=== PATIENT | male | born 1950 | race Caucasian/White ===

== ENCOUNTER 2017-01-19 11:34 | Outpatient (CLI) | payer OTHER ==
[~2017-01-19] VITALS: Ht 167.6 cm; Wt 52.0 kg
[2017-01-19 11:43] VITALS: BP 92/53; PULSE 68; RESP 18; Ht 167.6 cm; Wt 52.0 kg
[2017-01-19] MEDS ORDERED: METO-448 PO (12:07)
[2017-01-19] MEDS ORDERED: ASPI-664 PO (12:07)
[2017-01-19] MEDS ORDERED: CLON1PAT2 TD (12:07)
[2017-01-19] MEDS ORDERED: BENA10TA48 PO (12:07)
[2017-01-19] MEDS ORDERED: B CO1CAP11 PO (12:07)
[2017-01-19] MEDS ORDERED: SEVE800T10 PO (12:07)
[2017-01-19] MEDS ORDERED: AMLO-147 PO (12:07)
[2017-01-19] MEDS ORDERED: OMEP40CA6 PO (12:07)
[2017-01-19] MEDS ORDERED: HYDR-906 PO (12:07)
--- NOTE | 2017-01-19 15:56 | PN ---
Date/Time of Note Date/Time of Note DATE: 01/19/17 TIME: 15:46 Outpatient Progress Note Chief Complaint GI bleed/ASHD/diabetes/CRF/hypertension/hyperlipidemia HPI GI bleed/patient was recently hospitalized with a GI bleeding, patient on medication, no nausea vomiting, abdominal pain, no heartburn, ASHD/no chest pain, no PND orthopnea or ankle edema, Diabetes/no pleuritic supple due to hypoglycemia or gastroparesis, CRF/no hematemesis or melena, no pruritus, patient on dialysis, Hyperlipidemia/no xanthoma, on medication, no side effect of medication, Review of Systems Const: No Fever, no chills, no Wt. loss, no Fatigue, normal appetite, no diaphoresis. Eyes: No pain, no discharge patient has impaired vision, left side eye minimal vision,, even with the glasses,, no redness, no foreign body. ENT: No pain, no bleeding, no congestion, no sore throat, no dysphagia, no discharge or rhinitis. Lymph: No adenopathy, no tender nodes, no lymphedema. Resp: No SOB, no cough, no sputum, no wheezing, no chest pain., Hemoptysis, CV: No chest pain, no palpitaions, no SULLIVAN, no PND, no edema. GI: Normal appetite, no pain, no nausea, no vomiting, no diarrhea, no blood, no constipation. : No frequency, no urgency, no dysuria, no hematuria, no flank pain, no discharge, no bleeding. Musc: No back pain, no neck pain, no knee pain, no restricted ROM. Left leg below knee amputation, Skin: No rash, no skin lesions, no erythema, no laceration, no bruising, no pruritus. Patient has ulcer on the right heel, and also back off the leg just above the Achilles tendon, no bleeding or discharge, Neuro: No SMITH, no dizziness, no syncope, no seizure, no focal-weakness. Endo: No polyuria, no polydypsia, no dry-skin, no temp-intolerance. Psych: No hallucinations, no depression, no anxiety, no suicidal ideation. Ext: No edema, no pain, no ulcer, no weakness. 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 HEENT: Head normocephalic, atraumatic. Pupils equal, round, reactive to light and accommodate. Sclerae are no jaundice. Right eye significant impaired vision , left eye able to read with the glasses, nasal turbinates pink without erythema or nasal discharge. Mucous membranes pink and moist without lesions. Oropharynx clear without any exudate or discharge. NECK: Supple. Trachea midline, No thyromegaly, No cervical lymphadenopathy, No mass, No carotid bruits, No JVD, Carotid pulses 2+ bilaterally. PULMONARY: Clear to auscultaion bilaterally, No retractions, Chest expansion symmetric bilaterally, no rales, no ronchi, no dulness on percussion. CARDIAC: Normal SI and S2, Regular rate and rythm, no murmur, gallop, or rub. GASTROINTESTINAL: Abdomen is soft, non-tender, Non Rigid, No distention, Positive bowel sounds x4 quadrants, Liver normal. SKIN: Warm, dry, no rash, no bruise, no echmosis. Right heel DTI and just about that few centimeter or other 1 x 1 cm pressure sore injury, no bleeding or discharge, EXTREMITIES: Bilateral lower extremities no edema, no phlabitus, pulse palpable , no contracture. Right leg heel DTI, and just about that another process or injury, and left leg BKA, MUSCULOSKELETAL: Spine Normal, Non-tender, Normal range of motion, No swelling, no deformity, no clubbing, or cyanosis, the patient has no edema t gangrene of first and second toe right leg, and has right heel DTI, and about that few centimeter another pressure injuries 1 x 1 cm, left leg BKA, NEUROLOGIC: The patient is awake, alert, oriented, responding to yes/no questions appropriately, moving all extremities, cranial nerve intact, normal strenght, normal power, normal coordination, normal gait. Allergies Coded Allergies: vancomycin (Verified Allergy, Unknown, 01/19/17) PMH ASHD/diabetes/dialysis/chronic renal failure/hypertension/hy and removal of tibial bypass graft and left upper extremity revascularization with patchy angioplasty femoral to tibial artery bypass, Permacath Erlipidemia Surgery for fistula Social Hx No smoking no drinking, Family Hx Noncontributory Assessment/Plan Impression GI bleeding/ASHD/diabetes/CRF stage V/hypertension/hyperlipidemia/right heel DTI and right leg pressure sore injury/left BKA/impaired vision right eye Plan Patient has already on medication, patient has enough supply, no nausea or vomiting or abdominal pain, will monitor closely, Patient encouraged with the follow with the primary care physician, patient has artificial leg, monitor closely for pressure sore injury, Patient is going for surgery of right multiple toe amputation, and will also need treatment for right heel DTI, at present patient ulcers are dry and clean, will monitor closely, Patient education about diabetes hypertension etc. done, patient and family aware of it, follow with the appropriate risk consultant, and primary care physician Medications Home Meds Reported Medications Sevelamer Hcl* (Renagel*) 800 Mg Tablet, 1600 MG PO WITH MEALS, TAB 01/19/17 Benazepril Hcl* (Benazepril Hcl*) 10 Mg Tablet, 10 MG PO DAILY, #30 TAB 01/19/17 Aspirin (Low Dose Aspirin) 81 Mg Tablet.dr, 81 MG PO DAILY, #30 TAB 01/19/17 B Complex & C No.20/Folic Acid (Virt-Caps Softgel) 1 Mg Capsule, 1 MG PO, CAP 01/19/17 Amlodipine Besylate* (Amlodipine Besylate*) 10 Mg Tablet, 10 MG PO DAILY, #30 TAB 01/19/17 Omeprazole* (Omeprazole*) 40 Mg Capsule.dr, 40 MG PO DAILY, #30 CAP 01/19/17 Metoprolol Tartrate* (Lopressor*) 25 Mg Tab, 25 MG PO BID, #60 TAB 01/19/17 Clonidine Patch (CLONIDINE PATCH) 0.2 Mg/24 Hr Patch, 1 PATCH.WK TD Q7D, #4 PATCH.WK 01/19/17 Hydrocodone/Acetaminophen ([place] 5-325 Tablet) 1 Each Tablet, 1 EACH PO Q6 for PAIN LEVEL 6-10, TAB 01/19/17 CYRIL VENEGAS MD Jan 19, 2017 15:55
== END 2017-01-19 16:23 | disposition home or self-care (01) ==
LOC: DCC 11:34
PROVIDERS: ATTEND Internal Medicine
DX: K92.2 Gastrointestinal hemorrhage, unspecified (principal); I25.10 Atherosclerotic heart disease of native coronary artery without angina pectoris; E11.9 Type 2 diabetes mellitus without complications; I12.0 Hypertensive chronic kidney disease with stage 5 chronic kidney disease or end stage renal disease; N18.6 End stage renal disease; Z99.2 Dependence on renal dialysis; E78.5 Hyperlipidemia, unspecified; H54.7 Unspecified visual loss; Z79.82 Long term (current) use of aspirin; Z89.512 Acquired absence of left leg below knee

== ENCOUNTER 2017-01-24 08:18 | Day surgery (SDC) | payer OTHER ==
[~2017-01-24] VITALS: Ht 167.6 cm; Wt 52.0 kg
[~2017-01-24 08:18] MED LIST: AMLO-147 PO; ASPI-664 PO; B CO1CAP11 PO; BENA10TA48 PO; CLON1PAT2 TD; HYDR-906 PO; METO-448 PO; OMEP40CA6 PO; SEVE800T10 PO
[2017-01-24] MEDS ORDERED: BENA20TA48 PO (09:17)
[2017-01-24] MEDS ORDERED: CLOP75TA27 PO (09:19)
[2017-01-24 09:25] VITALS: BP 133/63; PULSE 68; RESP 18
[2017-01-24 09:30] VITALS: Ht 167.6 cm; Wt 52.0 kg
[2017-01-24 09:47] LABS: BASOPHIL # 0.1 10^3/ul (0.0-0.1); BASOPHILS % 0.6 % (0.0-2.0); EOSINOPHILS # 0.4 10^3/ul (0.0-0.5); EOSINOPHILS % 3.4 % (0.0-7.0); HEMATOCRIT 37.4 % (42.0-52.0); LYMPHOCYTES # 3.2 10^3/ul (0.8-2.9); MEAN CORPUSCULAR HEMOGLOBIN 32.8 pg (29.0-33.0); MEAN CORPUSCULAR HGB CONC 32.1 g/dl (32.0-37.0); MEAN CORPUSCULAR VOLUME 102.2 fl (82.0-101.0); MEAN PLATELET VOLUME 10.1 fl (7.4-10.4); MONOCYTE # 1.4 10^3/ul (0.3-0.9); MONOCYTES % 12.5 % (0.0-11.0); NEUTROPHIL # 6.1 10^3/ul (1.6-7.5); NEUTROPHILS % 53.9 % (39.0-77.0); NUCLEATED RED BLOOD CELLS% 0.2 /100WBC (0.0-0.0); PLATELET COUNT 252 10^3/UL (140-415); RED BLOOD COUNT 3.66 10^6/ul (4.70-6.10); RED CELL DISTRIBUTION WIDTH 19.9 % (11.5-14.5); WHITE BLOOD COUNT 11.2 10^3/ul (4.8-10.8)
[2017-01-24] MEDS ORDERED: CEFAZOLIN 2 GM/50 ML (PMX) 50 ML IVPB SCH (10:00)
[2017-01-24 10:06] LABS: INR 1.07; PROTIME 13.9 Sec (12.2-14.2); PT RATIO 1.1
[2017-01-24 10:07] LABS: PARTIAL THROMBOPLASTIN TIME 30.2 Sec (25.0-35.0)
[2017-01-24 10:09] LABS: CALCIUM 9.3 mg/dl (8.4-10.2); CREATININE 7.91 mg/dl (0.61-1.24); POTASSIUM 5.8 mmol/L (3.5-5.1)
[2017-01-24 12:08] VITALS: BP 96/39; PULSE 62; RESP 18
--- NOTE | 2017-01-24 12:21 | OPR ---
DATE OF OPERATION: 01/24/2017 SURGEON: Сергей De Los Santos MD PREOPERATIVE DIAGNOSIS: End-stage renal disease, and central stenosis. POSTOPERATIVE DIAGNOSIS: End-stage renal disease, and central stenosis. OPERATION PERFORMED: 1. Bilateral upper extremity venogram. 2. Central venogram. CONTRAST: As recorded. Heparin none. COMPLICATIONS: None. INDICATIONS: This is a 66-year-old gentleman with significant history of vascular pathology, whom has had history of end-stage renal disease and currently with a right groin perm catheter. The patient had identified to have central stenosis in the past and would like to have a fistula created. In light of these findings, the patient has agreed to proceed with bilateral upper extremity venogram and central venogram. Risks and benefits were discussed with the patient and not limited to, , myocardial infarction, stroke, infection, contrast extravasation nephrotoxicity, pneumonia. The patient has agreed to proceed. Operative FINDINGS AT SURGERY: 1. Right cephalic vein small in caliber, partially patent. 2. Right basilic vein seems to be small in caliber and partially patent. 3. Right brachial vein in the forearm, not well-visualized. 4. Right forearm cephalic vein patent and small in caliber. 5. Right upper arm basilic vein patent. 6. Right foot upper arm brachial vein is patent. 7. Right axillary vein is patent. 8. The right subclavian vein is patent. 9. Right internal jugular vein seems to be occluded and not well-visualized. 10. Right subclavian IJ junction with some stenosis. 11. Right superior vena cava seems to be patent with some stenosis. 12. Right distal subclavian vein stenosis. LEFT FOREARM VENOGRAM: 1. Left cephalic forms vein is small in caliber. 2. Left basilic vein in the forearm is small in caliber. 3. Left upper arm cephalic vein is patent. 4. Left basilar vein upper arm is patent to the left brachial vein in the upper arm is patent. 5. Left cephalic arch is pain left axillary vein is patent. 6. Left subclavian vein is patent. 7. Left brachial cephalic veins patent. OPERATIVE PROCEDURE: The patient was brought into the angio suite and placed on the angiogram table supine position. Time- out was conducted and the patient had verification, which was correct. Two IV sites were placed in the patient's distal arm and contrast was injected, and findings are noted as above. Performed a central venogram, the findings are noted above. The patient tolerated procedure well and was discharged home. Dictated By: Сергей De Los Santos MD /rosita/ludmila /Document#: [id number]
== END 2017-01-24 14:57 | disposition home or self-care (01) ==
LOC: SDS 08:18
PROVIDERS: ATTEND Student in an Organized Health Care Education/Training Program
DX: I12.0 Hypertensive chronic kidney disease with stage 5 chronic kidney disease or end stage renal disease (principal); N18.6 End stage renal disease; E11.9 Type 2 diabetes mellitus without complications
CPT/HCPCS: 75822; 80048; 82962; 85025; 85610; 85730